=== PATIENT | female | born 1960 | race Caucasian/White ===

== ENCOUNTER 2018-08-28 14:05 | Emergency (ER) | payer SELFPAY ==
[2018-08-28] MEDS ORDERED: Ibuprofen 800 MG TAB ONE (14:44)
== END 2018-08-28 15:15 | disposition home or self-care (01) ==
LOC: BURERS 14:05
DX: J02.9 Acute pharyngitis, unspecified (principal); F32.9 Major depressive disorder, single episode, unspecified; Z79.899 Other long term (current) drug therapy
CPT/HCPCS: 87081; 87430; 99283